=== PATIENT | female | born 1995 | race Hispanic/Latino ===

== ENCOUNTER 2018-05-19 11:12 | Emergency (ER) | payer OTHER ==
[~2018-05-19] VITALS: Ht 157.5 cm; Wt 110.9 kg
[~2018-05-19 11:12] MED LIST: PRE-NATAL PO
[2018-05-19] MEDS ORDERED: GENTAMICIN0.3 % IO (11:18)
[2018-05-19] MEDS ORDERED: OFLOXACIN0.3 % OU (11:25)
[2018-05-19] MEDS ORDERED: AMOXICILLIN500 M2 PO (11:25)
[2018-05-19 11:30] VITALS: BP 149/89
== END 2018-05-19 11:30 | disposition home or self-care (01) ==
LOC: ED 11:12
DX: J02.0 Streptococcal pharyngitis (principal); H10.33 Unspecified acute conjunctivitis, bilateral